=== PATIENT | female | born 1995 | race African-American/Black ===

== ENCOUNTER 2022-05-14 08:27 | Emergency (ER) | payer OTHER, SELFPAY | END 2022-05-14 09:03 | disposition home or self-care (01) | LOC: BURERS 08:27 | DX: H10.9 Unspecified conjunctivitis (principal) | CPT/HCPCS: 99282 ==

== ENCOUNTER 2022-07-13 16:27 | Emergency (ER) | payer MEDICAID, SELFPAY | END 2022-07-13 17:17 | disposition home or self-care (01) | LOC: BURERS 16:27 | DX: O99.611 Diseases of the digestive system complicating pregnancy, first trimester (principal); K21.9 Gastro-esophageal reflux disease without esophagitis | CPT/HCPCS: 99283 ==